=== PATIENT | female | born 1950 | race American Indian/Alaskan Native ===

== ENCOUNTER 2019-09-28 06:49 | Outpatient (CLI) | payer MEDICAID ==
[~2019-09-28] VITALS: Ht 162.8 cm; Wt 118.3 kg
[2019-09-28] VITALS (7 sets, daily range): BP systolic 117–145; BP diastolic 58–75; PULSE 60–77; TEMP 98.4
[~2019-09-28 06:49] MED LIST: ACCOLATE 220 MG/1 TA PO; ALBUTEROL0.83 MG/ML IH; ASPIRIN 81M81 MG/TA2 PO; CELEBREX 200MG200 MG PO; COZAAR 50MG50 MG/TAB PO; FISH OIL 1000MG1 CAP PO; HCTZ 25MG TAB25 MG PO; NEXIUM 40MG40 MG PO; PROAIR HFA0.09 MG/AC IH; RT ADVAIR 528 DISKUS IH; SPIRIVA RE2.5 MCG/Ac IH; VITAMIN D31000 IU PO; ZOCOR 20MG20 MG PO
[2019-09-28] MEDS ORDERED: CARDIZEM CD 18180 MG PO (07:09)
[2019-09-28] MEDS ORDERED: LASIX 20MG TABL20 MG PO (07:10)
[2019-09-28] MEDS ORDERED: MELATONIN5 M1 SL (07:10)
[2019-09-28] MEDS ORDERED: LEXAPRO 5MG5 MG PO (07:11)
[2019-09-28] MEDS ORDERED: SYNTHROID 0.0.025 MG PO (07:12)
[2019-09-28] MEDS ORDERED: ZAROXOLYN 2.52.5 MG PO (07:13)
[2019-09-28 07:40] LABS: HEMOGLOBIN 10.2 g/dl (12.5-16.0); MEAN CELL VOLUME 96 fl (80.0-100.0); MEAN CORPUSCULAR HEMOGLOBIN 31 pg (27.0-31.0); MEAN CORPUSCULAR HGB CONC 33 g/dl (33.0-37.0); MEAN PLATELET VOLUME 10.2 fl (7.4-10.4); PLATELET COUNT 243 K/mm3 (130-400); RED BLOOD COUNT 3.25 M/mm3 (4.10-5.30); REDCELL DISTRIBUTION WIDTH-CV 13.5 % (11.5-14.5)
[2019-09-28 07:43] LABS: HEMATOCRIT 31.2 % (37.0-47.0)
[2019-09-28 07:47] LABS: PROTHROMBIN TIME 11.3 SECONDS (9.7-12.8)
[2019-09-28 08:36] LABS: CALCIUM 10.2 mg/dL (8.4-10.2); CREATININE, serum 1.79 (0.52-1.25); POTASSIUM 3.7 mmol/L (3.4-5.0)
--- NOTE | 2019-09-28 09:52 | NUR ---
Report from Cat PERRY. Pt resting in bed, denies pain and needs. VSS.
--- NOTE | 2019-09-28 11:25 | NUR ---
INT discontinued intact. Discharge instructions given
--- NOTE | 2019-09-28 11:48 | NUR ---
Transferred to private car by thom
== END 2019-09-28 11:57 | disposition home or self-care (01) ==
LOC: COL.RAD 06:49
PROVIDERS: Internal Medicine Cardiovascular Disease
DX: I08.0 Rheumatic disorders of both mitral and aortic valves (principal)
CPT/HCPCS: J2704; J7120

== ENCOUNTER 2021-01-11 07:23 | Outpatient (CLI) | payer MEDICARE, MEDICAID ==
[~2021-01-11] VITALS: Ht 162.6 cm; Wt 106.8 kg
[~2021-01-11 07:23] MED LIST changes: +CARDIZEM CD 18180 MG PO; +LASIX 20MG TABL20 MG PO; +LEXAPRO 5MG5 MG PO; +MELATONIN5 M1 SL; +SYNTHROID 0.0.025 MG PO; +ZAROXOLYN 2.52.5 MG PO; +ZOCOR 10MG10 MG PO; -ZOCOR 20MG20 MG PO
[2021-01-11 08:03] LABS: MEAN CELL VOLUME 93 fl (80.0-100.0); MEAN CORPUSCULAR HGB CONC 34 g/dl (33.0-37.0); MEAN PLATELET VOLUME 10.6 fl (7.4-10.4); PLATELET COUNT 228 K/mm3 (130-400); RED BLOOD COUNT 3.05 M/mm3 (4.10-5.30); REDCELL DISTRIBUTION WIDTH-CV 13.2 % (11.5-14.5)
[2021-01-11 08:06] LABS: HEMATOCRIT 28.5 % (37.0-47.0); HEMOGLOBIN 9.6 g/dl (12.5-16.0); MEAN CORPUSCULAR HEMOGLOBIN 31 pg (27.0-31.0)
[2021-01-11 08:08] VITALS: BP 123/85; PULSE 57; TEMP 97.9
[2021-01-11 08:11] LABS: PROTHROMBIN TIME 11.3 SECONDS (9.7-12.8)
[2021-01-11] MEDS ORDERED: ACCOLATE 220 MG/1 TA PO (08:25)
[2021-01-11] MEDS ORDERED: RT ADVAIR 228 DISKUS IH (08:28)
[2021-01-11] MEDS ORDERED: MASON NATURAL1000 MG PO (08:32)
[2021-01-11 08:35] LABS: CALCIUM 10.5 mg/dL (8.4-10.2); CREATININE, serum 1.82 mg/dL (0.57-1.11); POTASSIUM 3.5 mmol/L (3.5-4.5)
[2021-01-11] MEDS ORDERED: K-DUR20 MEQ PO (08:37)
[2021-01-11] MEDS ORDERED: POLY-IRON 150150 MG PO (08:37)
[2021-01-11] MEDS ORDERED: VITAMIN D31000 I1 PO (08:38)
[2021-01-11] MEDS ORDERED: HUMIRA(CF)80 MG/0.8 SQ (08:39)
[2021-01-11] MEDS ORDERED: DALIRESP500 MCG PO (08:40)
[2021-01-11 09:36] VITALS: BP 130/59; PULSE 75
[2021-01-11 09:45] VITALS: BP 125/61; PULSE 75
[2021-01-11 10:00] VITALS: BP 114/54; PULSE 68
[2021-01-11 10:15] VITALS: BP 130/60; PULSE 68
[2021-01-11 10:30] VITALS: BP 128/60; PULSE 69
--- NOTE | 2021-01-11 10:32 | NUR ---
DC instructions reviewed with pt, she expresses understanding. She has tolerated PO fluids without issue, has denied desire for food. She is steady on feet around room. INT DC'd with catheter intact. She is assisted out to entrance by wheelchair with belongings to meet her nephew who will drive her home.
== END 2021-01-11 10:40 | disposition home or self-care (01) ==
LOC: COL.RAD 07:23
PROVIDERS: Internal Medicine Cardiovascular Disease
DX: R06.02 Shortness of breath (principal)
CPT/HCPCS: J2704